=== PATIENT | female | born 1935 | race Caucasian/White ===

== ENCOUNTER 2017-07-05 06:33 | Day surgery (SDC) | payer MEDICARE, BC ==
[2017-07-05 06:58] VITALS: BMI 20.5
[2017-07-05 07:06] VITALS: O2SAT 99
[2017-07-05] MEDS ORDERED: Propofol 10 mg/ml Inj (20 ML) ONE (08:02)
[2017-07-05] MEDS ORDERED: Lactated Ringer's 1,000 ML IV ONE (08:10)
--- NOTE | 2017-07-05 08:15 | CP.SDSHP ---
Same Day Surgery H & P - History Proposed Procedure: EGD Pre-Op Diagnosis: Atrophic gastritis, intestinal metaplasia - Previous Medical/Surgical History Endocrine/Metabolic: Thyroid Disease Previous Surgical History: Skin cancer, cataract - Allergies Allergies: Allergies Penicillins Allergy (Verified 07/05/17 06:47) PAIN - Current Medications Current Medications: See reconciliation sheet - Physical Exam General Appearance: WD WN female in NAD Vital Signs: Vital Signs 07/05/17 06:59 Temperature 98.4 F Pulse Rate 74 Respiratory 19 Rate Blood Pressure 139/74 O2 Sat by Pulse 99 Oximetry Mental Status: Alert & Oriented x3 Neuro: WNL Heart: WNL Lungs: WNL GI: WNL - {Optional Preform as Required} Abdomen: WNL - Impression Impression: Atrophic gastritis, intestinal metaplasia Pt. Evaluated Today:Candidate for Anesthesia & Procedure: Yes - Date & Time Date: 07/05/17 Time: 08:15 Short Stay Discharge - Short Stay Discharge Admitting Diagnosis/Reason for Visit: ATROPHIC GASTRITIS Disposition: HOME/ ROUTINE
[2017-07-05 08:57] VITALS: TEMP 98.2
[2017-07-05 09:37] VITALS: BP 110/62; PULSE 64; RESP 18
== END 2017-07-05 09:35 | disposition home or self-care (01) ==
LOC: C.ENDO 06:33
PROVIDERS: ATTEND Internal Medicine Gastroenterology
DX: K29.40 Chronic atrophic gastritis without bleeding (principal); K22.70 Barrett's esophagus without dysplasia; K31.9 Disease of stomach and duodenum, unspecified; Z12.0 Encounter for screening for malignant neoplasm of stomach; K44.9 Diaphragmatic hernia without obstruction or gangrene; Z85.828 Personal history of other malignant neoplasm of skin
CPT/HCPCS: 43239; 88305; 88312; 88342; J2704; J7120

== ENCOUNTER 2017-11-29 06:32 | Day surgery (SDC) | payer MEDICARE, BC ==
[2017-11-29] MEDS ORDERED: Lactated Ringer's 1,000 ML IV ONE (08:25)
--- NOTE | 2017-11-29 08:28 | CP.SDSHP ---
Same Day Surgery H & P - History Proposed Procedure: Screening colonoscopy Pre-Op Diagnosis: Screening for colon cancer - Previous Medical/Surgical History Endocrine/Metabolic: Thyroid Disease Misc: Other Comments: Hyperlipidemia Previous Surgical History: Cataract, skin cancer - Allergies Allergies: Allergies Penicillins Allergy (Verified 07/05/17 06:47) PAIN - Current Medications Current Medications: See reconciliation sheet - Physical Exam General Appearance: WD WN femaie in NAD Vital Signs: Vital Signs 11/29/17 07:00 Temperature 97.4 F L Pulse Rate 67 Respiratory 17 Rate Blood Pressure 105/83 O2 Sat by Pulse 100 Oximetry Mental Status: Alert & Oriented x3 Neuro: WNL Heart: WNL Lungs: WNL GI: WNL - {Optional Preform as Required} Abdomen: WNL - Impression Impression: Screening for colon cancer Pt. Evaluated Today:Candidate for Anesthesia & Procedure: Yes - Date & Time Date: 11/29/17 Time: 08:27 Short Stay Discharge - Short Stay Discharge Admitting Diagnosis/Reason for Visit: SCREENING Disposition: HOME/ ROUTINE
[2017-11-29] MEDS ORDERED: Etomidate 20 mg/10ml Inj IV ONE (08:31)
[2017-11-29] MEDS ORDERED: Propofol 10 mg/ml Inj (20 ML) ONE ×2 (08:32→08:42)
[2017-11-29 11:44] VITALS: BP 113/71; PULSE 59; RESP 19; TEMP 96.8; O2SAT 99
== END 2017-11-29 10:00 | disposition home or self-care (01) ==
LOC: C.ENDO 06:32
PROVIDERS: ATTEND Internal Medicine Gastroenterology
DX: Z12.11 Encounter for screening for malignant neoplasm of colon (principal); K63.5 Polyp of colon; K64.0 First degree hemorrhoids; K57.30 Diverticulosis of large intestine without perforation or abscess without bleeding; E03.9 Hypothyroidism, unspecified
CPT/HCPCS: 45380; 88305; J2001; J2704; J7120